=== PATIENT | female | born 1945 | race Caucasian/White ===

== ENCOUNTER → 2022-06-04 | Outpatient (CLI) | payer MEDICARE, OTHER | LOC: MC.RAD 12:50 | DX: N63.20 Unspecified lump in the left breast, unspecified quadrant (principal) ==

== ENCOUNTER → 2022-07-08 | Outpatient (CLI) | payer MEDICARE, OTHER ==
[~2022-07-08] MED LIST: NORCO 325 MG-51 TAB PO
== END ==
LOC: MC.RAD 13:00
DX: C50.312 Malignant neoplasm of lower-inner quadrant of left female breast (principal)
CPT/HCPCS: A9520

== ENCOUNTER 2022-07-09 06:46 | Day surgery (SDC) | payer MEDICARE, OTHER ==
[~2022-07-09] VITALS: Ht 165.1 cm; Wt 55.0 kg
[2022-07-09 08:11] VITALS: BP 161/79; PULSE 79; TEMP 98
[2022-07-09 12:10] VITALS: BP 144/79; PULSE 102; TEMP 98.8
--- NOTE | 2022-07-09 12:10 | NUR ---
PT TO BAY 2 PER CART FROM PACU. REPORT RECEIVED. VS OBTAINED. CALL LIGHT WIHTIN REACH. PT DENIES ANY ADDITIONAL NEEDS AT THIS TIME. PT RESTING COMFORTABLY.
[2022-07-09 12:25] VITALS: BP 140/82; PULSE 102
[2022-07-09 12:32] VITALS: TEMP 98.1
[2022-07-09 12:40] VITALS: BP 128/66; PULSE 104
--- NOTE | 2022-07-09 12:40 | NUR ---
PT TOLERATING WATER AND MUFFINS. CONTINUES TO DENY ANY NEEDS.
[2022-07-09] MEDS ORDERED: NORCO 325 MG-51 TAB PO ×3 (12:46→15:37)
[2022-07-09 12:55] VITALS: BP 142/86; PULSE 104
--- NOTE | 2022-07-09 14:10 | NUR ---
1320-IV DC'D AT THIS TIME. 1350-DISCHARGE EDUCATION COMPLETED WITH PT AND HER SONS. VERBALIZED UNDERSTANDING OF HOME AND FOLLOW UP CARE. ALL QUESTIONS ANSWERED. CLOTILDE DISCHARGE EDUCATION COMPLETED. DISCHARGE PAPERWORK AND CLOTILDE DRAIN SUPPLIES GIVEN TO PT. 1410-PT OFF UNIT PER WHEELCHAIR. PT DISCHARGED TO HOME WITH SONS PER PERSONAL VEHICLE.
== END 2022-07-09 14:10 | disposition home or self-care (01) ==
LOC: SDCO 06:46
DX: C50.312 Malignant neoplasm of lower-inner quadrant of left female breast (principal); Z17.0 Estrogen receptor positive status [ER+]
CPT/HCPCS: A4648; J0690; J1100; J2250; J2405; J2704; J2795; J3010; J7120

== ENCOUNTER → 2024-06-19 | Outpatient (CLI) | payer MEDICARE, OTHER | LOC: MC.RAD 09:48 | DX: Z12.31 Encounter for screening mammogram for malignant neoplasm of breast (principal); C50.312 Malignant neoplasm of lower-inner quadrant of left female breast ==